=== PATIENT | male | born 1980 | race Caucasian/White ===

== ENCOUNTER 2020-11-19 20:41 | Observation (INO) | payer OTHER ==
--- NOTE | 2020-11-19 21:25 | EDM.PDOC ---
ED HPI GENERAL MEDICAL PROBLEM - General Chief Complaint: Abdominal Pain Stated Complaint: ABDOMINAL PAIN Time Seen by Provider: 11/19/20 21:15 - History of Present Illness INITIAL COMMENTS - FREE TEXT/NARRATIVE: 39-year-old male presents the emergency room with abdominal pain. Patient states his abdominal pain started early this afternoon progressively getting worse. It is crampy at times and other times just achy. He is not aware of any fevers or chills. He has had some mild nausea certainly no vomiting no diarrhea no constipation. Patient has a significant history of a couple bouts of C. difficile but has gotten over this. And this is acting different. Patient had a 1 day touch of the stomach flu last week and got over this without any difficulty. Patient states that driving in patient states that driving in to the emergency room he developed quite a bit of discomfort and irritation every time his hit a bump in the road. Right Lower Abdomen Pain Score (Numeric/FACES): 7 - Related Data Allergies Allergy/AdvReac Type Severity Reaction Status Date / Time No Known Allergies Allergy Verified 11/19/20 20:51 Home Meds: Home Meds . [No Known Home Meds] 06/03/19 [History] Past Medical History HEENT History: Reports: Other (See Below) Other HEENT History: Conjunctivitis, Pharyngitis Cardiovascular History: Reports: None Respiratory History: Reports: Other (See Below) Other Respiratory History: Cough Gastrointestinal History: Reports: Other (See Below) Other Gastrointestinal History: C. Difficile, colitis, intermittent diarrhea, elevated liver enzymes, abnormal weight loss Genitourinary History: Reports: None Musculoskeletal History: Reports: None Neurological History: Reports: None Psychiatric History: Reports: None Endocrine/Metabolic History: Reports: None Hematologic History: Reports: None Immunologic History: Reports: None Oncologic (Cancer) History: Reports: None Dermatologic History: Reports: Other (See Below) Other Dermatologic History: Acne vulgaris, skin rash - Infectious Disease History Infectious Disease History: Reports: C-Difficile Other Infectious Disease History: Last diagnosed 2 years ago. - Past Surgical History Head Surgeries/Procedures: Reports: None HEENT Surgical History: Reports: None Cardiovascular Surgical History: Reports: None Respiratory Surgical History: Reports: None GI Surgical History: Reports: None Female Surgical History: Male Surgical History: Reports: None Endocrine Surgical History: Reports: None Neurological Surgical History: Reports: None Musculoskeletal Surgical History: Reports: None Oncologic Surgical History: Reports: None Dermatological Surgical History: Reports: None Social & Family History - Tobacco Use Tobacco Use Status *Q: Never Tobacco User - Caffeine Use Caffeine Use: Reports: Soda - Recreational Drug Use Recreational Drug Use: No ED ROS GENERAL - Review of Systems Review Of Systems: See Below Constitutional: Reports: No Symptoms HEENT: Reports: No Symptoms Respiratory: Reports: No Symptoms Cardiovascular: Reports: No Symptoms Endocrine: Reports: No Symptoms GI/Abdominal: Reports: Abdominal Pain, Nausea. Denies: Black Stool, Bloody Stool, Constipation, Diarrhea, Vomiting : Reports: No Symptoms Musculoskeletal: Reports: No Symptoms Skin: Reports: No Symptoms Neurological: Reports: No Symptoms Psychiatric: Reports: No Symptoms Hematologic/Lymphatic: Reports: No Symptoms Immunologic: Reports: No Symptoms ED EXAM, GI/ABD - Physical Exam Exam: See Below Exam Limited By: No Limitations General Appearance: Alert, No Apparent Distress Ears: Normal External Exam, Normal Canal, Hearing Grossly Normal, Normal TMs Nose: Normal Inspection, Normal Mucosa, No Blood Head: Atraumatic, Normocephalic Neck: Normal Inspection, Supple, Non-Tender, Full Range of Motion Respiratory/Chest: No Respiratory Distress, Lungs Clear, Normal Breath Sounds Cardiovascular: Regular Rate, Rhythm, No Edema, No Murmur GI/Abdominal Exam: Normal Bowel Sounds, Rebound (Questionable rebound), Tender. No: Guarding, Rigid Back Exam: Normal Inspection. No: CVA Tenderness (L), CVA Tenderness (R) Extremities: Normal Inspection, No Pedal Edema Course - Vital Signs Last Recorded V/S: Last Vital Signs Temp 36.4 C 11/19/20 20:52 Pulse 78 11/19/20 20:52 Resp 15 11/19/20 20:52 BP 131/94 H 11/19/20 20:52 Pulse Ox 100 11/19/20 20:52 - Orders/Labs/Meds Orders: Active Orders 24 hr Category Date Time Status Abdomen Pelvis w Cont [CT] Stat Exams 11/19/20 21:36 Taken Ertapenem [INVanz] 1 gm Med 11/19/20 23:39 Active Sodium Chloride 0.9% [Normal Saline] 50 ml IV ONETIME Lactated Ringers [Ringers, Lactated] 1,000 ml Med 11/19/20 21:30 Active IV ASDIRECTED Medication Orders Lactated Ringer's (Ringers, Lactated) 1,000 mls @ 150 mls/hr IV ASDIRECTED LYNN Last Admin: 11/19/20 22:47 Dose: 150 mls/hr Documented by: HORTENCIA Ertapenem 1 gm/ Sodium (Chloride) 50 mls @ 100 mls/hr IV ONETIME ONE Stop: 11/20/20 00:08 Labs: Laboratory Tests 11/19/20 11/19/20 11/19/20 Range/Units 21:33 21:33 21:47 WBC 10.85 H (4.23-9.07) K/mm3 RBC 5.14 (4.63-6.08) M/mm3 Hgb 15.5 (13.7-17.5) gm/dl Hct 43.3 (40.1-51.0) % MCV 84.2 (79.0-92.2) fl MCH 30.2 (25.7-32.2) pg MCHC 35.8 H (32.2-35.5) g/dl RDW Std Deviation 36.4 (35.1-43.9) fL Plt Count 171 (163-337) K/mm3 MPV 9.9 (9.4-12.3) fl Neut % (Auto) 72.7 H (34.0-67.9) % Lymph % (Auto) 20.1 L (21.8-53.1) % [place] % (Auto) 6.0 (5.3-12.2) % Eos % (Auto) 0.6 L (0.8-7.0) Baso % (Auto) 0.2 (0.1-1.2) % Neut # (Auto) 7.90 H (1.78-5.38) K/mm3 Lymph # (Auto) 2.18 (1.32-3.57) K/mm3 [place] # (Auto) 0.65 (0.30-0.82) K/mm3 Eos # (Auto) 0.06 (0.04-0.54) K/mm3 Baso # (Auto) 0.02 (0.01-0.08) K/mm3 Manual Slide Review Normal smear Sodium 141 (136-145) mEq/L Potassium 3.8 (3.5-5.1) mEq/L Chloride 104 (98-107) mEq/L Carbon Dioxide 27 (21-32) mEq/L Anion Gap 13.8 (5-15) BUN 24 H (7-18) mg/dL Creatinine 1.3 (0.7-1.3) mg/dL Est Cr Clr Drug Dosing 88.70 mL/min Estimated GFR (MDRD) > 60 (>60) mL/min BUN/Creatinine Ratio 18.5 H (14-18) Glucose 107 H (74-106) mg/dL Calcium 9.1 (8.5-10.1) mg/dL Total Bilirubin 0.7 (0.2-1.0) mg/dL AST 19 (15-37) U/L ALT 46 (16-63) U/L Alkaline Phosphatase 56 (46-116) U/L Total Protein 7.2 (6.4-8.2) g/dl Albumin 4.1 (3.4-5.0) g/dl Globulin 3.1 gm/dL Albumin/Globulin Ratio 1.3 (1-2) Lipase 85 (73-393) U/L Urine Color Light yellow (Yellow) Urine Appearance Slt cloudy H (Clear) Urine pH 7.0 (5.0-8.0) Ur Specific [place] 1.025 (1.005-1.030) Urine Protein Negative (Negative) Urine Glucose (UA) Negative (Negative) Urine Ketones Negative (Negative) Urine Occult Blood Negative (Negative) Urine Nitrite Negative (Negative) Urine Bilirubin Negative (Negative) Urine Urobilinogen 0.2 (0.2-1.0) Ur Leukocyte Esterase Negative (Negative) Meds: Medications Generic Name Dose Route Start Last Admin Trade Name Freq PRN Reason Stop Dose Admin Lactated Ringer's 1,000 mls @ 150 mls/hr 11/19/20 21:30 11/19/20 22:47 Ringers, Lactated IV 150 mls/hr ASDIRECTED LYNN Administration Ertapenem 1 gm/ Sodium 50 mls @ 100 mls/hr 11/19/20 23:39 Chloride IV 11/20/20 00:08 ONETIME ONE Discontinued Medications Generic Name Dose Route Start Last Admin Trade Name Freq PRN Reason Stop Dose Admin Ertapenem 1 gm 11/19/20 23:31 Invanz IVPUSH 11/19/20 23:32 ONETIME ONE Lactated Ringer's 1,000 mls @ 999 mls/hr 11/19/20 21:29 11/19/20 21:36 Ringers, Lactated IV 11/19/20 22:29 999 mls/hr .BOLUS ONE Administration Ondansetron HCl 4 mg 11/19/20 22:04 11/19/20 22:08 Zofran IVPUSH 11/19/20 22:05 4 mg ONETIME ONE Administration - Re-Assessments/Exams Free Text/Narrative Re-Assessment/Exam: 11/19/20 23:46 After initial exam I did order a CT of the abdomen because he had some rebound tenderness albeit it was not marked. This is suspicious for an early append icitis with a mildly dilated appendix with fecaliths no significant stranding however. Radiology called with acute appendicitis no perforation or abscess seen. Case discussed with Dr. Kee on-call surgeon who recommends starting him on Invanz, fluids n.p.o. anticipating surgery in the morning. Departure - Departure Time of Disposition: 23:49 Disposition: Refer to Observation Clinical Impression: Acute appendicitis - Discharge Information Forms: ED Department Discharge Sepsis Event Note (ED) - Evaluation Sepsis Screening Result: No Definite Risk - Focused Exam Vital Signs: Vital Signs Temp Pulse Resp BP Pulse Ox 11/19/20 20:52 36.4 C 78 15 131/94 H 100 - My Orders Last 24 Hours: My Active Orders 11/19/20 21:30 Lactated Ringers [Ringers, Lactated] 1,000 ml IV ASDIRECTED 11/19/20 21:36 Abdomen Pelvis w Cont [CT] Stat 11/19/20 23:39 Ertapenem [INVanz] 1 gm Sodium Chloride 0.9% [Normal Saline] 50 ml IV ONETIME - Assessment/Plan Last 24 Hours: My Active Orders 11/19/20 21:30 Lactated Ringers [Ringers, Lactated] 1,000 ml IV ASDIRECTED 11/19/20 21:36 Abdomen Pelvis w Cont [CT] Stat 11/19/20 23:39 Ertapenem [INVanz] 1 gm Sodium Chloride 0.9% [Normal Saline] 50 ml IV ONETIME
[2020-11-19] MEDS ORDERED: Lactated Ringers 1,000 ML IV ONE (21:29)
[2020-11-19] MEDS ORDERED: Lactated Ringers 1,000 ML IV SCH (21:30)
[2020-11-19] MEDS ORDERED: Ondansetron 4 MG/2 ML SDV IVPUSH ONE (22:04)
[2020-11-19] MEDS ORDERED: Ertapenem 1 GM Vial IVPUSH ONE (23:31)
[2020-11-19] MEDS ORDERED: Ertapenem 1 GM in Sodium Chloride 0.9% 50 ML IV ONE (23:39)
[2020-11-20] MEDS ORDERED: HYDROmorphone 0.5 MG/0.5 ML Syringe IVPUSH PRN ×2 (01:56→14:13)
[2020-11-20] MEDS ORDERED: Ondansetron 4 MG/2 ML SDV IVPUSH PRN (01:57)
[2020-11-20] MEDS ORDERED: Lactated Ringers 1,000 ML IV SCH (02:00)
--- NOTE | 2020-11-20 07:18 | PCM.HP.2 ---
H&P History of Present Illness - General Date of Service: 11/20/20 Admit Problem/Dx: Admission Diagnosis/Problem Admission Diagnosis/Problem Acute appendicitis Source of Information: Patient History Limitations: Reports: No Limitations - History of Present Illness Initial Comments - Free Text/Narative: Patient started having abdominal cramps yesterday afternoon. THis progressed through the day. At night, he started having some nausea and the abdominal cramps localized to the right lower quadrant. No vomiting. No fevers or chills. No prior abd operations. WBC was 10.[address] confirmed acute appendicitis. Onset of Symptoms: Reports: Sudden Duration of Symptoms: Reports: Day(s): (1), Getting Worse Location: Reports: Abdomen (RLQ) Quality: Reports: Ache, Other (cramps) Severity: Moderate Improves with: Reports: Immobilization Worsens with: Reports: Movement Right Lower Abdomen Pain Score (Numeric/FACES): 7 - Related Data Allergies/Adverse Reactions: Allergies Allergy/AdvReac Type Severity Reaction Status Date / Time No Known Allergies Allergy Verified 11/20/20 00:39 Home Medications: Home Meds . [No Known Home Meds] 06/03/19 [History] Past Medical History HEENT History: Reports: Other (See Below) Other HEENT History: Conjunctivitis, Pharyngitis Cardiovascular History: Reports: None Respiratory History: Reports: Other (See Below) Other Respiratory History: Cough Gastrointestinal History: Reports: Other (See Below) Other Gastrointestinal History: C. Difficile, colitis, intermittent diarrhea, elevated liver enzymes, abnormal weight loss Genitourinary History: Reports: None Musculoskeletal History: Reports: None Neurological History: Reports: None Psychiatric History: Reports: None Endocrine/Metabolic History: Reports: None Hematologic History: Reports: None Immunologic History: Reports: None Oncologic (Cancer) History: Reports: None Dermatologic History: Reports: Other (See Below) Other Dermatologic History: Acne vulgaris, skin rash - Infectious Disease History Infectious Disease History: Reports: C-Difficile Other Infectious Disease History: Last diagnosed 2 years ago. - Past Surgical History Head Surgeries/Procedures: Reports: None HEENT Surgical History: Reports: None Cardiovascular Surgical History: Reports: None Respiratory Surgical History: Reports: None GI Surgical History: Reports: None Male Surgical History: Reports: None Endocrine Surgical History: Reports: None Neurological Surgical History: Reports: None Musculoskeletal Surgical History: Reports: None Oncologic Surgical History: Reports: None Dermatological Surgical History: Reports: None Social & Family History - Family History Family Medical History: No Pertinent Family History - Tobacco Use Tobacco Use Status *Q: Never Tobacco User Second Hand Smoke Exposure: No - Caffeine Use Caffeine Use: Reports: Soda Other Caffeine Use: diet coke one every other day - Recreational Drug Use Recreational Drug Use: No H&P Review of Systems - Review of Systems: Review Of Systems: See Below General: Reports: No Symptoms HEENT: Reports: No Symptoms Pulmonary: Reports: No Symptoms Cardiovascular: Reports: No Symptoms Gastrointestinal: Reports: Abdominal Pain Genitourinary: Reports: No Symptoms Musculoskeletal: Reports: No Symptoms Skin: Reports: No Symptoms Exam - Exam Exam: See Below - Vital Signs Vital Signs: Last Vital Signs Temp 97.5 F 11/19/20 20:52 Pulse 78 11/19/20 20:52 Resp 15 11/19/20 20:52 BP 131/94 H 11/19/20 20:52 Pulse Ox 100 11/19/20 20:52 Weight: 101.786 kg - Exam General: Alert, Oriented, Cooperative Lungs: Clear to Auscultation, Normal Respiratory Effort Cardiovascular: Regular Rate, Regular Rhythm, Normal S1, Normal S2 GI/Abdominal Exam: Soft, Non-Tender, No Distention, No Abnormal Bruit, No Mass, Tender (RLQ) - Patient Data Lab Results Last 24 hrs: Laboratory Results - last 24 hr 11/19/20 11/19/20 11/19/20 Range/Units 21:33 21:33 21:47 WBC 10.85 H (4.23-9.07) K/mm3 RBC 5.14 (4.63-6.08) M/mm3 Hgb 15.5 (13.7-17.5) gm/dl Hct 43.3 (40.1-51.0) % MCV 84.2 (79.0-92.2) fl MCH 30.2 (25.7-32.2) pg MCHC 35.8 H (32.2-35.5) g/dl RDW Std Deviation 36.4 (35.1-43.9) fL Plt Count 171 (163-337) K/mm3 MPV 9.9 (9.4-12.3) fl Neut % (Auto) 72.7 H (34.0-67.9) % Lymph % (Auto) 20.1 L (21.8-53.1) % [place] % (Auto) 6.0 (5.3-12.2) % Eos % (Auto) 0.6 L (0.8-7.0) Baso % (Auto) 0.2 (0.1-1.2) % Neut # (Auto) 7.90 H (1.78-5.38) K/mm3 Lymph # (Auto) 2.18 (1.32-3.57) K/mm3 [place] # (Auto) 0.65 (0.30-0.82) K/mm3 Eos # (Auto) 0.06 (0.04-0.54) K/mm3 Baso # (Auto) 0.02 (0.01-0.08) K/mm3 Manual Slide Review Normal smear Sodium 141 (136-145) mEq/L Potassium 3.8 (3.5-5.1) mEq/L Chloride 104 (98-107) mEq/L Carbon Dioxide 27 (21-32) mEq/L Anion Gap 13.8 (5-15) BUN 24 H (7-18) mg/dL Creatinine 1.3 (0.7-1.3) mg/dL Est Cr Clr Drug Dosing 88.70 mL/min Estimated GFR (MDRD) > 60 (>60) mL/min BUN/Creatinine Ratio 18.5 H (14-18) Glucose 107 H (74-106) mg/dL Calcium 9.1 (8.5-10.1) mg/dL Total Bilirubin 0.7 (0.2-1.0) mg/dL AST 19 (15-37) U/L ALT 46 (16-63) U/L Alkaline Phosphatase 56 (46-116) U/L Total Protein 7.2 (6.4-8.2) g/dl Albumin 4.1 (3.4-5.0) g/dl Globulin 3.1 gm/dL Albumin/Globulin Ratio 1.3 (1-2) Lipase 85 (73-393) U/L Urine Color Light yellow (Yellow) Urine Appearance Slt cloudy H (Clear) Urine pH 7.0 (5.0-8.0) Ur Specific [place] 1.025 (1.005-1.030) Urine Protein Negative (Negative) Urine Glucose (UA) Negative (Negative) Urine Ketones Negative (Negative) Urine Occult Blood Negative (Negative) Urine Nitrite Negative (Negative) Urine Bilirubin Negative (Negative) Urine Urobilinogen 0.2 (0.2-1.0) Ur Leukocyte Esterase Negative (Negative) SARS-CoV-2 RNA ([place]) (NEGATIVE) 11/19/20 Range/Units 23:54 WBC (4.23-9.07) K/mm3 RBC (4.63-6.08) M/mm3 Hgb (13.7-17.5) gm/dl Hct (40.1-51.0) % MCV (79.0-92.2) fl MCH (25.7-32.2) pg MCHC (32.2-35.5) g/dl RDW Std Deviation (35.1-43.9) fL Plt Count (163-337) K/mm3 MPV (9.4-12.3) fl Neut % (Auto) (34.0-67.9) % Lymph % (Auto) (21.8-53.1) % [place] % (Auto) (5.3-12.2) % Eos % (Auto) (0.8-7.0) Baso % (Auto) (0.1-1.2) % Neut # (Auto) (1.78-5.38) K/mm3 Lymph # (Auto) (1.32-3.57) K/mm3 [place] # (Auto) (0.30-0.82) K/mm3 Eos # (Auto) (0.04-0.54) K/mm3 Baso # (Auto) (0.01-0.08) K/mm3 Manual Slide Review Sodium (136-145) mEq/L Potassium (3.5-5.1) mEq/L Chloride (98-107) mEq/L Carbon Dioxide (21-32) mEq/L Anion Gap (5-15) BUN (7-18) mg/dL Creatinine (0.7-1.3) mg/dL Est Cr Clr Drug Dosing mL/min Estimated GFR (MDRD) (>60) mL/min BUN/Creatinine Ratio (14-18) Glucose (74-106) mg/dL Calcium (8.5-10.1) mg/dL Total Bilirubin (0.2-1.0) mg/dL AST (15-37) U/L ALT (16-63) U/L Alkaline Phosphatase (46-116) U/L Total Protein (6.4-8.2) g/dl Albumin (3.4-5.0) g/dl Globulin gm/dL Albumin/Globulin Ratio (1-2) Lipase (73-393) U/L Urine Color (Yellow) Urine Appearance (Clear) Urine pH (5.0-8.0) Ur Specific [place] (1.005-1.030) Urine Protein (Negative) Urine Glucose (UA) (Negative) Urine Ketones (Negative) Urine Occult Blood (Negative) Urine Nitrite (Negative) Urine Bilirubin (Negative) Urine Urobilinogen (0.2-1.0) Ur Leukocyte Esterase (Negative) SARS-CoV-2 RNA ([place]) Negative (NEGATIVE) Result Diagrams: 11/19/20 21:33 11/19/20 21:33 Sepsis Event Note - Evaluation Sepsis Screening Result: No Definite Risk - Focused Exam Vital Signs: Vital Signs Temp Pulse Resp BP Pulse Ox 11/19/20 20:52 97.5 F 78 15 131/94 H 100 Problem List Initiated/Reviewed/Updated: No Orders Last 24hrs: Active Orders 24 hr Category Date Time Status Patient Status [ADT] Routine ADT 11/20/20 00:06 Active Bedrest Bathroom Privileges [RC] ASDIRECTED Care 11/20/20 01:53 Active NPO Now [Nothing per Oral Now Diet] [DIET] Diet 11/20/20 Breakfast Active Abdomen Pelvis w Cont [CT] Stat Exams 11/19/20 21:36 Taken HYDROmorphone [Dilaudid] Med 11/20/20 01:56 Active 0.5 mg IVPUSH Q3H PRN Lactated Ringers [Ringers, Lactated] 1,000 ml Med 11/20/20 02:00 Active IV ASDIRECTED Ondansetron [Zofran] Med 11/20/20 01:57 Active 4 mg IVPUSH Q4H PRN Isolation [COMM] Routine Oth 11/20/20 05:55 Ordered Code Status [Resuscitation Status] Routine Resus Stat 11/20/20 01:52 Ordered Medication Orders Hydromorphone HCl (Dilaudid) 0.5 mg IVPUSH Q3H PRN PRN Reason: Pain Lactated Ringer's (Ringers, Lactated) 1,000 mls @ 100 mls/hr IV ASDIRECTED [facility] Ondansetron HCl (Zofran) 4 mg IVPUSH Q4H PRN PRN Reason: Nausea Assessment/Plan Comment:: Patient has acute appendicitis, no abscess. We discussed options including antibiotiocs vs surgery. We discussed benefits and risks for each. Due to questionable appendicolith, I recommended surgery. Specific risks for surgery discussed include bleeding, infection, injury to adjacent structures, needing open operation. We also discussed post op expectations of incision soreness, and weight lifting restriction of no more than 20# for 2 weeks. Questions answered and informed consent obtained. We will proceed with laparoscopic appendectomy, possible open today afternoon.
--- NOTE | 2020-11-20 07:46 | PCM.PREANE ---
Preanesthetic Assessment - Procedure Proposed Procedure: Laparoscopic Appendectomy - Anesthesia/Transfusion/Family Hx Anesthesia History: Prior Anesthesia Without Reaction Family History of Anesthesia Reaction: No Transfusion History: No Prior Transfusion(s) Intubation History: Unknown - Review of Systems General: No Symptoms Pulmonary: No Symptoms (ETOH: 6 beers per month) Cardiovascular: No Symptoms Gastrointestinal: No Symptoms (History of C-diff. 2 years ago.), Abdominal Pain (1-2/10 sitting, 5/10 with ambulation), Diarrhea, Nausea (improved from last night) Neurological: No Symptoms Other: Reports: None - Physical Assessment NPO Status Date: 11/19/20 NPO Status Time: 23:00 Vital Signs: Last Vital Signs Temp 36.8 C 11/20/20 01:12 Pulse 93 11/20/20 01:12 Resp 16 11/20/20 01:12 BP 128/71 11/20/20 01:12 Pulse Ox 95 11/20/20 01:12 Height: 1.88 m Weight: 101.786 kg ASA Class: 1 Mental Status: Alert & Oriented x3 Airway Class: Mallampati = 2 Dentition: Reports: Normal Dentition, Caries Thyro-Mental Finger Breadths: 3 Mouth Opening Finger Breadths: 3 ROM/Head Extension: Full Lungs: Clear to Auscultation, Normal Respiratory Effort Cardiovascular: Regular Rate, Regular Rhythm, No Murmurs - Lab Values: Laboratory Last Values WBC 10.85 K/mm3 (4.23-9.07) H 11/19/20 21:33 RBC 5.14 M/mm3 (4.63-6.08) 11/19/20 21:33 Hgb 15.5 gm/dl (13.7-17.5) 11/19/20 21:33 Hct 43.3 % (40.1-51.0) 11/19/20 21:33 MCV 84.2 fl (79.0-92.2) 11/19/20 21:33 MCH 30.2 pg (25.7-32.2) 11/19/20 21:33 MCHC 35.8 g/dl (32.2-35.5) H 11/19/20 21:33 RDW Std Deviation 36.4 fL (35.1-43.9) 11/19/20 21:33 Plt Count 171 K/mm3 (163-337) 11/19/20: MPV 9.9 fl (9.4-12.3) 11/19/20 21: Neut % (Auto) 72.7 % (34.0-67.9) H 11/19/20 21: Lymph % (Auto) 20.1 % (21.8-53.1) L 11/19/20 21: [place] % (Auto) 6.0 % (5.3-12.2) 11/19/20 21: Eos % (Auto) 0.6 (0.8-7.0) L 11/19/20 21: Baso % (Auto) 0.2 % (0.1-1.2) 11/19/20: Neut # (Auto) 7.90 K/mm3 (1.78-5.38) H 11/19/20 21: Lymph # (Auto) 2.18 K/mm3 (1.32-3.57) 11/19/20: [place] # (Auto) 0.65 K/mm3 (0.30-0.82) 11/19/20 21: Eos # (Auto) 0.06 K/mm3 (0.04-0.54) 11/19/20: Baso # (Auto) 0.02 K/mm3 (0.01-0.08) 11/19/20 21:33 Manual Slide Review Normal smear 11/19/20 21: Sodium 141 mEq/L (136-145) 11/19/20 21: Potassium 3.8 mEq/L (3.5-5.1) 11/19/20: Chloride 104 mEq/L (98-107) 11/19/20 21: Carbon Dioxide 27 mEq/L (21-32) 11/19/20: Anion Gap 13.8 (5-15) 11/19/20 21: BUN 24 mg/dL (7-18) H 11/19/20: Creatinine 1.3 mg/dL (0.7-1.3) 11/19/20 21: Est Cr Clr Drug Dosing 88.70 mL/min 11/19/20 21:33 Estimated GFR (MDRD) > 60 mL/min (>60) 11/19/20 21:33 BUN/Creatinine Ratio 18.5 (14-18) H 11/19/20 21:33 Glucose 107 mg/dL (74-106) H 11/19/20 21:33 Calcium 9.1 mg/dL (8.5-10.1) 11/19/20 21:33 Total Bilirubin 0.7 mg/dL (0.2-1.0) 11/19/20 21:33 AST 19 U/L (15-37) 11/19/20 21:33 ALT 46 U/L (16-63) 11/19/20 21:33 Alkaline Phosphatase 56 U/L (46-116) 11/19/20 21:33 Total Protein 7.2 g/dl (6.4-8.2) 11/19/20: Albumin 4.1 g/dl (3.4-5.0) 11/19/20 21: Globulin 3.1 gm/dL 11/19/20 21: Albumin/Globulin Ratio 1.3 (1-2) 11/19/20 21: Lipase 85 U/L (73-393) 11/19/20 21:33 Urine Color Light yellow (Yellow) 11/19/20 21:47 Urine Appearance Slt cloudy (Clear) H 11/19/20 21:47 Urine pH 7.0 (5.0-8.0) 11/19/20 21:47 Ur Specific Lyman 1.025 (1.005-1.030) 11/19/20 21:47 Urine Protein Negative (Negative) 11/19/20 21:47 Urine Glucose (UA) Negative (Negative) 11/19/20 21:47 Urine Ketones Negative (Negative) 11/19/20 21:47 Urine Occult Blood Negative (Negative) 11/19/20 21:47 Urine Nitrite Negative (Negative) 11/19/20 21:47 Urine Bilirubin Negative (Negative) 11/19/20 21:47 Urine Urobilinogen 0.2 (0.2-1.0) 11/19/20 21:47 Ur Leukocyte Esterase Negative (Negative) 11/19/20 21:47 SARS-CoV-2 RNA (SOLOMON) Negative (NEGATIVE) 11/19/20 23:54 Above labs reviewed and noted and within acceptable ranges to proceed with scheduled procedure. - Allergies Allergies/Adverse Reactions: Allergies Allergy/AdvReac Type Severity Reaction Status Date / Time No Known Allergies Allergy Verified 11/20/20 00:39 - Anesthesia Plan Pre-Op Medication Ordered: None - Acknowledgements Anesthesia Type Planned: General Anesthesia Pt an Appropriate Candidate for the Planned Anesthesia: Yes Alternatives and Risks of Anesthesia Discussed w Pt/Guardian: Yes Pt/Guardian Understands and Agrees with Anesthesia Plan: Yes PreAnesthesia Questionnaire HEENT History: Reports: Other (See Below) Other HEENT History: Conjunctivitis, Pharyngitis Cardiovascular History: Reports: None Respiratory History: Reports: Other (See Below) Other Respiratory History: Cough Gastrointestinal History: Reports: Other (See Below) Other Gastrointestinal History: C. Difficile, colitis, intermittent diarrhea, elevated liver enzymes, abnormal weight loss Genitourinary History: Reports: None Musculoskeletal History: Reports: None Neurological History: Reports: None Psychiatric History: Reports: None Endocrine/Metabolic History: Reports: None Hematologic History: Reports: None Immunologic History: Reports: None Oncologic (Cancer) History: Reports: None Dermatologic History: Reports: Other (See Below) Other Dermatologic History: Acne vulgaris, skin rash - Infectious Disease History Infectious Disease History: Reports: C-Difficile Other Infectious Disease History: Last diagnosed 2 years ago. - Past Surgical History Head Surgeries/Procedures: Reports: None HEENT Surgical History: Reports: None Cardiovascular Surgical History: Reports: None Respiratory Surgical History: Reports: None GI Surgical History: Reports: None Male Surgical History: Reports: None Endocrine Surgical History: Reports: None Neurological Surgical History: Reports: None Musculoskeletal Surgical History: Reports: None Oncologic Surgical History: Reports: None Dermatological Surgical History: Reports: None - SUBSTANCE USE Tobacco Use Status *Q: Never Tobacco User Tobacco Use Within Last Twelve Months: No Second Hand Smoke Exposure: No Recreational Drug Use History: No - HOME MEDS Home Medications: Home Meds . [No Known Home Meds] 06/03/19 [History] - CURRENT (IN HOUSE) MEDS Current Meds: Current Medications Hydromorphone HCl (Dilaudid) 0.5 mg IVPUSH Q3H PRN PRN Reason: Pain Lactated Ringer's (Ringers, Lactated) 1,000 mls @ 100 mls/hr IV ASDIRECTED [facility] Ondansetron HCl (Zofran) 4 mg IVPUSH Q4H PRN PRN Reason: Nausea Discontinued Medications Ertapenem (Invanz) 1 gm IVPUSH ONETIME ONE Stop: 11/19/20 23:32 Last Admin: 11/19/20 23:53 Dose: Not Given Documented by: Lactated Ringer's (Ringers, Lactated) 1,000 mls @ 999 mls/hr IV .BOLUS ONE Stop: 11/19/20 22:29 Last Admin: 11/19/20 21:36 Dose: 999 mls/hr Documented by: Lactated Ringer's (Ringers, Lactated) 1,000 mls @ 150 mls/hr IV ASDIRECTED [facility] Last Admin: 11/19/20 22:47 Dose: 150 mls/hr Documented by: Ertapenem 1 gm/ Sodium (Chloride) 50 mls @ 100 mls/hr IV ONETIME ONE Stop: 11/20/20 00:08 Last Admin: 11/19/20 23:51 Dose: 100 mls/hr Documented by: Ondansetron HCl (Zofran) 4 mg IVPUSH ONETIME ONE Stop: 11/19/20 22:05 Last Admin: 11/19/20 22:08 Dose: 4 mg Documented by:
--- NOTE | 2020-11-20 09:22 | CT ---
CT abdomen and pelvis Technique: Multiple axial sections were obtained from above the dome of the diaphragm inferiorly through the pubic symphysis. Intravenous and oral contrast was utilized. Delayed images were also obtained through the pelvis. Reconstructed coronal and sagittal images were obtained. Comparison: No prior abdominal imaging is available. Findings: Appendix is mildly dilated with slight surrounding inflammatory change. Findings are compatible with early appendicitis. Visualized lung bases showed nothing acute. Liver contains no focal parenchymal abnormality. Spleen appears within normal limits. Adrenal glands show no nodule. Pancreas shows no discrete abnormality. Gallbladder contains no calcified gallstones. Abdominal aorta shows no aneurysm. No retroperitoneal adenopathy or mesenteric abnormalities are appreciated. No pelvic mass or adenopathy is appreciated. Delayed images show contrast within the ureters and within the bladder. Bone window settings were reviewed which show no acute osseous abnormality. Small fat-containing umbilical hernia is noted. Impression: 1. Findings compatible with early appendicitis. 2. No other acute abnormality is appreciated on CT study of the abdomen and pelvis. Diagnostic code #5 I agree with preliminary report from [facility], finalized on 11/20/20, 12:25 AM MARCIAL GOMES
[2020-11-20] MEDS ORDERED: Propofol 200 MG/20 ML SDV ONE (12:02)
[2020-11-20] MEDS ORDERED: fentaNYL 250 MCG/5 ML SDV ONE (12:02)
[2020-11-20] MEDS ORDERED: Midazolam 1 MG/ML 2 ML SDV ONE (12:02)
[2020-11-20] MEDS ORDERED: Ondansetron 4 MG/2 ML SDV ONE (12:03)
[2020-11-20] MEDS ORDERED: Lidocaine 1% 4 ML ONE (12:03)
[2020-11-20] MEDS ORDERED: Succinylcholine/Sod PF 100 MG/5 ML SYRINGE IV ONE ×2 (12:06→13:44)
[2020-11-20] MEDS ORDERED: Rocuronium 50 MG/5 ML Vial ONE (12:11)
[2020-11-20] MEDS: Bupivacaine 0.5%/EPINEPHrine 1:200,000 50 ML MDV ONE ×2 (12:33→14:03)
[2020-11-20] MEDS ORDERED: cefOXitin 1 GM Vial ONE (13:36)
[2020-11-20] MEDS ORDERED: HYDROmorphone 0.5 MG/0.5 ML Syringe ONE (14:06)
[2020-11-20] MEDS ORDERED: fentaNYL 100 MCG/2 ML SDV IVPUSH PRN (14:13)
[2020-11-20] MEDS ORDERED: Lactated Ringers 1,000 ML ONE (14:33)
[2020-11-20] MEDS ORDERED: Glycopyrrolate 0.2 MG/ML SDV ONE (14:50)
--- NOTE | 2020-11-20 15:06 | PCM.POSTAN ---
POST ANESTHESIA ASSESSMENT - MENTAL STATUS Mental Status: Somnolent - VITAL SIGNS Vital Signs: Last Vital Signs Temp 99.7 F 11/20/20 15:00 Pulse 82 11/20/20 15:00 Resp 16 11/20/20 15:00 BP 143/87 H 11/20/20 15:00 Pulse Ox 100 11/20/20 15:00 - RESPIRATORY Respiratory Status: Respiratory Rate WNL, Airway Patent, O2 Saturation Stable, Supplemental Oxygen - CARDIOVASCULAR CV Status: Pulse Rate WNL, Blood Pressure Stable - GASTROINTESTINAL GI Status: No Symptoms - PAIN Pain Score: 0 - POST OP HYDRATION Hydration Status: Adequate & Stable
--- NOTE | 2020-11-20 15:48 | OR ---
DATE OF OPERATION: 11/20/2020 SURGEON: Edgar Kee MD PREOPERATIVE DIAGNOSIS: Acute appendicitis. POSTOPERATIVE DIAGNOSIS: Acute appendicitis. OPERATION PERFORMED: Laparoscopic appendectomy. ESTIMATED BLOOD LOSS: 5 mL. ANESTHESIA: General endotracheal. COMPLICATIONS: None. INDICATIONS AND CONSENT: Mr. Suarez is a 39-year-old male who started having abdominal pain yesterday, which eventually localized to the right lower quadrant. He came to the emergency department and was found to have acute appendicitis. The patient was admitted overnight with antibiotics and I spoke with him today regarding options including antibiotic versus surgery. The patient agreed to proceed with surgery. Risks, benefits and alternatives were discussed and informed consent was obtained. DESCRIPTION OF PROCEDURE: The patient was taken to the operating room, placed in supine position and padded appropriately. Additional antibiotics consisting of cefoxitin were given and general anesthesia was induced. A time-out was performed. The patient's abdomen was clipped, prepped and draped in the usual sterile fashion. Then we began the procedure by injecting local anesthetic consisting of 1% lidocaine in the infraumbilical position. Incision was made at this site. Umbilical stalk was elevated. Veress needle was introduced. Abdomen was insufflated to 15 mmHg. Then a 12 trocar was inserted under direct laparoscopic visualization. Upon inspection of the abdomen, no obvious injury to the bowel or any other structures due to Veress needle or trocar insertion. Two additional 5 mm trocars were placed, one in the left lower quadrant, another one in the suprapubic area. The patient was placed in slight Trendelenburg with left side down. Then we focused on the right lower quadrant. The appendix was identified. This was inflamed and dilated from 1 cm distal to its base all the way to the tip. A window was made in the appendiceal base and mesoappendix was taken with LigaSure Impact. After this was taken, the appendix was completely isolated and divided with a blue load using Endo-JOSI stapler. The staple line appeared to be normal and not bleeding. Then the appendix was placed in an EndoCatch bag. We inspected the area of the excision, it was hemostatic. Inflammatory fluid was dabbed with a Ray-Mary Jane. Then the appendix was removed through the infraumbilical incision and this incision was closed in 2 layers and the fascial layer was closed with 0 Vicryl stitch using López-Mayra device and the skin with 4-0 Monocryl and the skin at the other two 5 mm trocar sites was closed with a 4-0 Monocryl. Dermabond was applied. This marked the end of the procedure. Instruments, sharps and sponges were counted x2 and found to be correct. The patient was awoken, extubated and taken to the PACU for recovery. The patient will be allowed to return home today with pain medications and the patient will follow up in clinic in 2 weeks. MARIBEL /[id number] MTDD
--- NOTE | 2020-11-20 16:24 | PCM48HPAN ---
Post Anesthesia Note - EVALUATION WITHIN 48HRS OF ANESTHETIC Vital Signs in Normal Range: Yes Patient Participated in Evaluation: Yes Respiratory Function Stable: Yes Airway Patent: Yes Cardiovascular Function Stable: Yes Hydration Status Stable: Yes Pain Control Satisfactory: Yes Nausea and Vomiting Control Satisfactory: Yes Mental Status Recovered: Yes Vital Signs: Last Vital Signs Temp 37.1 C 11/20/20 15:50 Pulse 79 11/20/20 15:50 Resp 17 11/20/20 15:50 BP 133/83 11/20/20 15:50 Pulse Ox 97 11/20/20 15:50
== END 2020-11-20 17:45 | disposition home or self-care (01) ==
LOC: JD.ED 20:41 → JD.MS 11-20 00:15
PROVIDERS: ADMIT Surgery; ATTEND Surgery
DX: K35.30 Acute appendicitis with localized peritonitis, without perforation or gangrene (principal); Z01.812 Encounter for preprocedural laboratory examination; Z20.822 Contact with and (suspected) exposure to COVID-19
CPT/HCPCS: 00840; 36415; 74177; 74177-26; 80053; 81003; 83690; 85025; 96361; 96365; 96375; 99285; 99285-25; G0378; J0330; J0694; J1170; J1335; J2250; J2405; J2704; J2710; J3010; J3490; J7120; U0002